=== PATIENT | female | born 1965 | race Two or more races ===

== ENCOUNTER 2018-03-22 10:58 | Emergency (ER) | payer OTHER ==
[~2018-03-22] VITALS: Ht 129.5 cm; Wt 84.5 kg
[2018-03-22] MEDS ORDERED: ONDANSETRON ODT 4 MG PO ONE (11:30)
[2018-03-22] MEDS ORDERED: PLEASE ENTER ALLERGIES MC SCH (11:30)
[2018-03-22] MEDS ORDERED: ONDANSETRON ODT 4 MG ONE (11:46)
[2018-03-22 13:59] VITALS: BP 118/78
== END 2018-03-22 14:03 | disposition home or self-care (01) ==
LOC: ED 13:17
DX: S82.042A Displaced comminuted fracture of left patella, initial encounter for closed fracture (principal); E11.9 Type 2 diabetes mellitus without complications; W18.30XA Fall on same level, unspecified, initial encounter; Y93.89 Activity, other specified; Y99.8 Other external cause status; Y92.009 Unspecified place in unspecified non-institutional (private) residence as the place of occurrence of the external cause
CPT/HCPCS: 29505; 73502; 73564; 99284; Q0162

== ENCOUNTER 2018-06-17 04:23 | Observation (INO) | payer OTHER ==
[~2018-06-17] VITALS: Ht 144.8 cm; Wt 88.4 kg
[2018-06-17] MEDS ORDERED: FAMOTIDINE 20 MG/2 ML ONE (04:56)
[2018-06-17] MEDS ORDERED: ONDANSETRON 2MG/ML, 2ML ONE (04:56)
[2018-06-17] MEDS ORDERED: SODIUM CHLORIDE 0.9% 1,000ML IVBOLUS ONE (05:00)
[2018-06-17] MEDS ORDERED: SODIUM CHLORIDE FLUSH 10ML SYR IVF ONE (05:00)
[2018-06-17] MEDS ORDERED: ONDANSETRON 2MG/ML, 2ML IVPush ONE (05:00)
[2018-06-17] MEDS ORDERED: FAMOTIDINE 20 MG/2 ML IVP ONE (05:00)
[2018-06-17 05:18] LABS: BASOPHILS % (AUTO) 0 % (0-1); EOSINOPHILS # (AUTO) 0.01 x10^3/uL (0-0.4); EOSINOPHILS % (AUTO) 0 % (1-7); LYMPHOCYTES # (AUTO) 0.71 x10^3/uL (1-3.4); LYMPHOCYTES % (AUTO) 8 % (22-44); MD NO; MEAN CORPUSCULAR HEMOGLOBIN 27.4 pg (27.0-34.8); MEAN CORPUSCULAR VOLUME 82.9 fL (80-100); MEAN PLATELET VOLUME 9.1 fL (7.4-10.4); MONOCYTES # (AUTO) 0.36 x10^3/uL (0.2-0.8); MONOCYTES % (AUTO) 4 % (2-9); NEUTROPHILS # (AUTO) 8.37 x10^3/uL (1.8-6.8); NEUTROPHILS % (AUTO) 89 % (42-75); PLATELET COUNT 187 x10^3/uL (130-400); RED BLOOD COUNT 5.42 x10^6/uL (3.82-5.3); RED CELL DISTRIBUTION WIDTH 15.5 % (9.6-15.2)
[2018-06-17 05:29] LABS: ALBUMIN 3.9 g/dL (3.4-5.0); ANION GAP 9 mmol/L (5-15); CALCIUM 8.8 mg/dL (8.5-10.1); CHLORIDE 105 mmol/L (98-107)
[2018-06-17 05:31] LABS: ALANINE AMINOTRANSFERASE 45 U/L (12-78); ALKALINE PHOSPHATASE 148 U/L (45-117); BILIRUBIN,TOTAL 0.8 mg/dL (0.2-1.0); CREATININE 0.86 mg/dL (0.55-1.02); TOTAL PROTEIN 8.3 g/dL (6.4-8.2)
[2018-06-17] MEDS ORDERED: HUM100VI6 SC (05:50)
[2018-06-17] MEDS ORDERED: METF500T17 PO (05:50)
[2018-06-17] MEDS ORDERED: ATOR10TA9 PO (05:50)
[2018-06-17 05:57] LABS: ACETONE, SERUM Trace (10mg/dL) mg/dL (Negative)
[2018-06-17 05:59] LABS: MICROSCOPIC NOT IND
[2018-06-17 06:12] LABS: CULTURE INDICATED? NO
[2018-06-17 07:55] VITALS: BP 109/68
[2018-06-17] MEDS ORDERED: ATOR20TA9 PO (12:15)
[2018-06-17 12:41] VITALS: BP 112/71
[2018-06-17] MEDS ORDERED: DEXTROSE 4 GM TAB.CHEW PO PRN (13:00)
[2018-06-17] MEDS ORDERED: GLUCAGON 1 MG IM PRN (13:00)
[2018-06-17] MEDS ORDERED: ONDANSETRON ODT 4 MG PO PRN (13:00)
[2018-06-17] MEDS ORDERED: DEXTROSE 50%, 50ML SYRINGE IVPush PRN (13:00)
[2018-06-17] MEDS: SODIUM CHLORIDE 0.9% 1,000 ML IV SCH (14:32)
[2018-06-17] MEDS: INSULIN LISPRO 100 UNITS/ML, PEN SQ-INSULIN SCH ×2 (17:10→21:24)
[2018-06-17 19:47] VITALS: BP 122/74
[2018-06-17] MEDS ORDERED: ATORVASTATIN 20 MG TABLET PO SCH (21:00)
[2018-06-17] MEDS: metFORMIN 500 MG TABLET PO SCH (21:14)
[2018-06-17] MEDS: SODIUM CHLORIDE FLUSH 10ML SYR IVF SCH (21:23)
[2018-06-18] MEDS: SODIUM CHLORIDE 0.9% 1,000 ML IV SCH ×2 (00:04→10:58)
[2018-06-18 02:09] VITALS: BP 129/74
[2018-06-18 05:37] LABS: ANION GAP 5 mmol/L (5-15); CALCIUM 7.5 mg/dL (8.5-10.1); CHLORIDE 113 mmol/L (98-107)
[2018-06-18 05:38] LABS: CREATININE 0.53 mg/dL (0.55-1.02)
[2018-06-18 06:41] VITALS: BP 111/68
[2018-06-18] MEDS: SODIUM CHLORIDE FLUSH 10ML SYR IVF SCH (08:14)
[2018-06-18] MEDS: INSULIN LISPRO 100 UNITS/ML, PEN SQ-INSULIN SCH ×2 (08:14→11:27)
[2018-06-18] MEDS: metFORMIN 500 MG TABLET PO SCH (08:14)
[2018-06-18] MEDS ORDERED: ACETAMINOPHEN 325 MG TABLET PO PRN (11:15)
== END 2018-06-18 14:31 | disposition left against medical advice (07) ==
LOC: ED 05:29 → INTOOBSV 05:42 → 3NE 05:42
PROVIDERS: ADMIT Internal Medicine; ATTEND Internal Medicine
DX: E86.0 Dehydration (principal); E83.51 Hypocalcemia; E78.5 Hyperlipidemia, unspecified; E10.65 Type 1 diabetes mellitus with hyperglycemia; I10 Essential (primary) hypertension; K52.9 Noninfective gastroenteritis and colitis, unspecified; Z79.4 Long term (current) use of insulin; Z87.891 Personal history of nicotine dependence; Z90.710 Acquired absence of both cervix and uterus
CPT/HCPCS: 36415; 74021; 80048; 80053; 81003; 82010; 82800; 82962; 83690; 85025; 93005; 96361; 96374; 96375; 99285; G0378; J1815; J2405; J7030; S0028